=== PATIENT | female | born 1940 | race Two or more races ===

== ENCOUNTER 2025-07-29 16:08 | Inpatient (IN) | payer MEDICARE ==
[~2025-07-29] VITALS: Ht 154.9 cm; Wt 79.8 kg
[2025-07-29 16:11] VITALS: BP 158/86
[2025-07-29] MEDS ORDERED: [UNRECOGNIZED DRUG - CODE] PO (16:20)
[2025-07-29] MEDS ORDERED: AMLO-212 PO (16:20)
[2025-07-29] MEDS ORDERED: LISI40TA13 PO (16:20)
[2025-07-29] MEDS ORDERED: ASPI81TA31 PO (16:20)
[2025-07-29] MEDS ORDERED: MAGNESIUM HYDROXIDE 30 ML LIQUID UDC PO PRN (20:00)
[2025-07-29] MEDS ORDERED: MAG HYDROX/AL HYDROX/SIMETH 30 ML LIQUID UDC PO PRN (20:00)
[2025-07-29] MEDS ORDERED: ACETAMINOPHEN 325 MG TABLET PO PRN (20:00)
[2025-07-29 21:25] VITALS: BP 163/66; TEMP 97.7; O2SAT 94
[2025-07-29] MEDS: BLOOD SUGAR DIAGNOSTIC 1 EACH STRIP VI ONE (21:30)
[2025-07-29] MEDS ORDERED: MIRT-121 PO (21:43)
[2025-07-29] MEDS ORDERED: EZET10TA15 PO (21:43)
[2025-07-29] MEDS: MELATONIN 3 MG TABLET PO SCH (22:00)
[2025-07-29] MEDS ORDERED: MELATONIN 3 MG TABLET PO SCH (22:30)
[2025-07-30] MEDS: ASPIRIN 81 MG TAB.CHEW PO SCH (08:27)
[2025-07-30] MEDS: AMLODIPINE 5 MG TABLET PO SCH (08:30)
[2025-07-30] MEDS: LISINOPRIL 20 MG TABLET PO SCH (08:31)
[2025-07-30 08:48] VITALS: BP 172/65; TEMP 97.7; O2SAT 94
[2025-07-30 09:00] LABS: GLUCOSE FASTING 107.0 mg/dL (70-115)
[2025-07-30] MEDS ORDERED: FLU VACC 2025-26(6MOS UP)/PF 0.5 ML SYRINGE IM ONE (09:00)
[2025-07-30 16:06] VITALS: BP 167/71; TEMP 97.7; O2SAT 94
[2025-07-30] MEDS ORDERED: TEMAZEPAM 7.5 MG CAPSULE PO PRN (17:00)
[2025-07-30] MEDS: DULOXETINE 20 MG CAPSULE.DR PO SCH (19:30)
[2025-07-30 19:54] VITALS: BP 149/64; TEMP 97.9; O2SAT 95
[2025-07-30] MEDS ORDERED: MELATONIN 3 MG TABLET PO SCH (21:00)
[2025-07-30] MEDS: LORAZEPAM 0.5 MG TABLET PO PRN (21:30)
[2025-07-31 08:42] VITALS: BP 170/61; TEMP 97.7; O2SAT 94
[2025-07-31] MEDS ORDERED: PNEUMOCOCCAL 23-VAL P-SAC VAC 0.5 ML VIAL IM ONE ×2 (09:00→10:30)
[2025-07-31] MEDS: EZETIMIBE 10 MG TABLET PO SCH (09:39)
[2025-07-31] MEDS: DULOXETINE 20 MG CAPSULE.DR PO SCH (09:40)
[2025-07-31 16:16] VITALS: BP 128/54; TEMP 97.7; O2SAT 94
[2025-07-31 19:43] VITALS: BP 152/59; TEMP 98.1; O2SAT 95
[2025-08-01 09:32] VITALS: BP 171/69; TEMP 98.1; O2SAT 95
[2025-08-01 16:36] VITALS: BP 152/55; TEMP 98.2; O2SAT 96
[2025-08-01 20:00] VITALS: BP 145/54; TEMP 97.6; O2SAT 98
[2025-08-02 07:53] VITALS: BP 132/50; TEMP 98.4; O2SAT 96
[2025-08-02 09:23] VITALS: BP 132/50
== END 2025-08-02 12:00 | disposition home or self-care (01) | DRG 885 ==
LOC: ER 16:13 → GPS 18:49
PROVIDERS: ADMIT Psychiatry & Neurology Psychosomatic Medicine; ATTEND Nurse Practitioner Acute Care
DX: F33.2 Major depressive disorder, recurrent severe without psychotic features (principal); E66.9 Obesity, unspecified; E78.5 Hyperlipidemia, unspecified; F41.9 Anxiety disorder, unspecified; Z87.440 Personal history of urinary (tract) infections; Z90.49 Acquired absence of other specified parts of digestive tract; Z68.33 Body mass index [BMI] 33.0-33.9, adult; I10 Essential (primary) hypertension
CPT/HCPCS: 36415; 90732; 93005